=== PATIENT | male | born 1985 | race Caucasian/White ===

== ENCOUNTER 2020-12-26 09:49 | Emergency (ER) | payer MEDICAID ==
[~2020-12-26] VITALS: Ht 175.3 cm; Wt 81.6 kg
[2020-12-26 10:07] VITALS: BP 117/78
[2020-12-26] MEDS ORDERED: NAPR-54 PO (10:12)
[2020-12-26] MEDS ORDERED: TOBR5SOL17 LEFT EYE (10:12)
--- NOTE | 2020-12-26 10:34 | NUR ---
PT SEEN BY DR LEDBETTER -- NO RN CARE PROVIDED.
--- NOTE | 2020-12-26 10:35 | NUR ---
Patient discharged with v/s stable. Written and verbal after care instructions given and explained. Patient alert, oriented and verbalized understanding of instructions. Ambulatory with steady gait. All questions addressed prior to discharge. ID band removed. Patient advised to follow up with PMD. Rx of NAPROXEN AND TOBRAMYCIN given. Patient educated on indication of medication including possible reaction and side effects. Opportunity to ask questions provided and answered.
[2020-12-26 10:36] VITALS: BP 117/78
== END 2020-12-26 10:37 | disposition home or self-care (01) ==
LOC: MED 09:49
DX: H00.015 Hordeolum externum left lower eyelid (principal); F17.210 Nicotine dependence, cigarettes, uncomplicated; Z79.899 Other long term (current) drug therapy
CPT/HCPCS: 99283

== ENCOUNTER 2021-04-01 10:00 | Emergency (ER) | payer MEDICAID, SELFPAY ==
[~2021-04-01] VITALS: Ht 180.3 cm; Wt 81.6 kg
[~2021-04-01 10:00] MED LIST: NAPR-54 PO; TOBR5SOL17 LEFT EYE
[2021-04-01 10:20] VITALS: BP 137/90
--- NOTE | 2021-04-01 11:00 | NUR ---
DR LEDBETTER ATTEMPTED TO CALL PT IN TENT, NO ANSWER
--- NOTE | 2021-04-01 11:07 | NUR ---
Called Pt via telephone, no answer.
--- NOTE | 2021-04-01 11:10 | NUR ---
PATIENT LEFT WITHOUT BEING SEEN BY DR. LEDBETTER. NO FURTHER CARE PROVIDED FOR PATIENT.
== END 2021-04-01 11:10 | disposition left against medical advice (07) ==
LOC: MED 10:00
DX: R05 Cough (principal); R06.02 Shortness of breath; R68.83 Chills (without fever); Z53.21 Procedure and treatment not carried out due to patient leaving prior to being seen by health care provider

== ENCOUNTER 2021-04-14 09:46 | Emergency (ER) | payer MEDICAID, SELFPAY ==
[~2021-04-14] VITALS: Ht 177.8 cm; Wt 81.6 kg
[2021-04-14 09:56] VITALS: BP 132/76
--- NOTE | 2021-04-14 10:01 | NUR ---
[facility]: RIGHT EYE 20/50, LEFT EYE 20/70, BOTH EYES 20/50
--- NOTE | 2021-04-14 10:03 | NUR ---
35 YO MALE BIBS WITH C/O 7/10 LEFT EYE PAIN, DESCRIBES INTERMITTENT BURNING, WATERY, AND SORE/TENDERNESS. LEFT LOWER EYELID STYE, +BLURRY VISION AT TIMES. PT SEEN HERE IN JANUARY, PRESCRIBED EYE DROPS, FINISHED PRESCRIPTION BUT NOT EFFECTIVE. RETURNED FOR RE-ASSESSMENT. EYE ASSESSMENT COMPLETE. A&OX4, STEADY GAIT, VSS. PMH: APPENDICITIS/APPENDIX REMOVED NKDA
--- NOTE | 2021-04-14 10:04 | NUR ---
MD ESQUIVEL AT BEDSIDE EVALUATING PATIENT.
[2021-04-14] MEDS ORDERED: SULF-59 PO (11:01)
== END 2021-04-14 11:16 | disposition home or self-care (01) ==
LOC: MED 09:46
DX: H00.015 Hordeolum externum left lower eyelid (principal); Z98.890 Other specified postprocedural states; Z79.1 Long term (current) use of non-steroidal anti-inflammatories (NSAID); Z79.2 Long term (current) use of antibiotics
CPT/HCPCS: 99283

== ENCOUNTER 2021-05-02 13:07 | Emergency (ER) | payer MEDICAID ==
[~2021-05-02] VITALS: Ht 177.8 cm; Wt 86.2 kg
[~2021-05-02 13:07] MED LIST changes: +SULF-59 PO
[2021-05-02 13:20] VITALS: BP 125/76
--- NOTE | 2021-05-02 13:27 | NUR ---
BIBS C/O COUGH, 7/10 SORE THROAT, HOLGUIN X 1WEEK. COVID TESTED NEGATIVE 2 WEEKS AGO. PMH: APPENDECTOMY
[2021-05-02] MEDS ORDERED: BENZ1LOZ98 PO (13:48)
[2021-05-02] MEDS ORDERED: IBUP-2213 PO (13:48)
[2021-05-02] MEDS ORDERED: PROM118S5 PO (13:48)
--- NOTE | 2021-05-02 14:09 | NUR ---
COVID PCR SWAB DONE.
--- NOTE | 2021-05-02 14:13 | NUR ---
Note maynor in EDM - 05/02/21 at 1427 by [email or web address] Patient discharged with v/s stable. Written and verbal after care instructions given and explained. Patient alert, oriented and verbalized understanding of instructions. Ambulatory with steady gait. All questions addressed prior to discharge. ID band removed. Patient advised to follow up with PMD. Rx of CEPACOL SORE THROAT LOZENGE, PROMETHAZINE & IBUPROFEN given. Patient educated on indication of medication including possible reaction and side effects. Opportunity to ask questions provided and answered.
[2021-05-02 14:15] VITALS: BP 122/79
== END 2021-05-02 14:15 | disposition home or self-care (01) ==
LOC: MED 13:07
DX: J06.9 Acute upper respiratory infection, unspecified (principal); Z20.822 Contact with and (suspected) exposure to COVID-19; Z90.49 Acquired absence of other specified parts of digestive tract; Z79.899 Other long term (current) drug therapy
CPT/HCPCS: 99283; U0003